=== PATIENT | female | born 1995 | race Caucasian/White ===

== ENCOUNTER → 2017-06-21 19:33 | Emergency (ER) | payer OTHER ==
[~2017-06-21] VITALS: Ht 167.6 cm; Wt 52.0 kg
[~2017-06-21 19:33] MED LIST: BUSP10TA PO; LORA-474 PO; VIST50CA PO; ZOLO100T PO
[2017-06-21 19:34] VITALS: BP 137/81; PULSE 88; RESP 20; TEMP 98.3; O2SAT 98
== END | disposition left against medical advice (07) ==
LOC: NED 19:33
DX: Z04.9 Encounter for examination and observation for unspecified reason (principal)
CPT/HCPCS: 99281

== ENCOUNTER 2017-06-22 00:49 | Emergency (ER) | payer OTHER ==
[~2017-06-22] VITALS: Ht 167.6 cm; Wt 52.0 kg
[~2017-06-22 00:49] MED LIST changes: -BUSP10TA PO; -LORA-474 PO; -ZOLO100T PO
[2017-06-22 00:52] VITALS: BP 115/72; PULSE 124; RESP 22; TEMP 98.5; O2SAT 98
[2017-06-22 01:45] VITALS: BP 111/71; PULSE 82; RESP 18; O2SAT 98
[2017-06-22] MEDS ORDERED: ZOLO100T PO (01:45)
[2017-06-22] MEDS ORDERED: BUSP10TA PO (01:45)
[2017-06-22] MEDS ORDERED: LORazepam 1 MG TAB PO ONE (02:00)
[2017-06-22] MEDS ORDERED: SODIUM CHLORIDE 0.9% FLUSH 10 ML FLUSH IV FLUSH PRN (02:30)
[2017-06-22] MEDS ORDERED: SODIUM CHLOR 0.9% 1000 ML INJ 1,000 ML IV ONE (02:30)
[2017-06-22 02:43] LABS: AUTOMATED NEUTROPHIL # 6.9 TH/MM3 (1.8-7.7); BASOPHIL % 0.4 % (0.0-2.0); EOSINOPHIL % 0.4 % (0.0-4.0); HEMATOCRIT 40.4 % (35.0-46.0); HEMO FLAGS DIFF FINAL; LYMPH % 15.5 % (9.0-44.0); LYMPHOCYTE # 1.4 TH/MM3 (1.0-4.8); MEAN CELL VOLUME 88.6 FL (80.0-100.0); MEAN CORPUSCULAR HEMOGLOBIN 29.9 PG (27.0-34.0); MEAN CORPUSCULAR HGB CONC 33.7 % (32.0-36.0); MONO % 7.4 % (0.0-8.0); NEUT % 76.3 % (16.0-70.0); PLATELET COUNT 251 TH/MM3 (150-450); RED BLOOD COUNT 4.56 MIL/MM3 (4.00-5.30); RED CELL DISTRIBUTION WIDTH 13.1 % (11.6-17.2)
[2017-06-22 03:03] LABS: BICARBONATE 25.8 MEQ/L (21.0-32.0); POTASSIUM 3.8 MEQ/L (3.5-5.1)
[2017-06-22] MEDS ORDERED: LORA-474 PO (03:31)
--- NOTE | 2017-06-22 03:32 | PD ---
HPI Chief Complaint: Anxiety Time Seen by Provider: 01:48 Travel History International Travel<30 days: No Contact w/Intl Traveler<30days: No Traveled to known affect area: No History of Present Illness HPI The patient's 21 years old. She reports severe anxiety for the last several hours. She describes palpitations and dyspnea. A sense of impending doom is reported. She denies suicidal or homicidal ideation. She denies hallucination. She reports future stressors including moving out of home to attend college. PFSH Past Medical History Anxiety: Yes Depression: No Cardiovascular Problems: No Diminished Hearing: No Genitourinary: Yes Musculoskeletal: No Neurologic: No Psychiatric: No Reproductive: Yes (IRREGULAR BLEEDING SINCE ONSET OF MENSES 06/08. ALSO YEAST INFECTION) Respiratory: No Immunizations Current: Yes ?: Not LMP: CURRENT : 0 Past Surgical History Oral Surgery: Yes (WISDOM TEETH) Social History Alcohol Use: No Tobacco Use: No Substance Use: No Allergies-Medications (Allergen,Severity, Reaction): Coded Allergies: Pecan (Verified Allergy, Mild, HIVES, 06/22/17) [place] (Verified Allergy, Mild, HIVES, 06/22/17) Uncoded Allergies: ALMONDS (Allergy, Mild, HIVES, 03/28/08) Reported Meds & Prescriptions Reported Meds & Active Scripts Active Reported Zoloft (Sertraline HCl) 100 Mg Tab 100 Mg PO TID Buspirone (Buspirone HCl) 10 Mg Tab 10 Mg PO TID Review of Systems Except as stated in HPI: all other systems reviewed are Neg Physical Exam Narrative GENERAL: 21 old female well-nourished well-developed pleasant speaking full sentences SKIN: Focused skin assessment warm/dry. HEAD: Atraumatic. Normocephalic. EYES: Pupils equal and round. No scleral icterus. No injection or drainage. ENT: No nasal bleeding or discharge. Mucous membranes pink and moist. NECK: Trachea midline. No JVD. CARDIOVASCULAR: Regular rate and rhythm. No murmur appreciated. RESPIRATORY: No accessory muscle use. Clear to auscultation. Breath sounds equal bilaterally. GASTROINTESTINAL: Abdomen soft, non-tender, nondistended. Hepatic and splenic margins not palpable. MUSCULOSKELETAL: No obvious deformities. No clubbing. No cyanosis. No edema. NEUROLOGICAL: Awake and alert. No obvious cranial nerve deficits. Motor grossly within normal limits. Normal speech. PSYCHIATRIC: No suicidal or homicidal ideation. No hallucination. Data Data Last Documented VS Vital Signs Date Time Temp Pulse Resp B/P Pulse Ox O2 Delivery O2 Flow Rate FiO2 06/22/17 01:45 82 18 111/71 98 Room Air 06/22/17 00:52 98.5 Vital signs reviewed Orders Electrocardiogram (06/22/17 01:57) Chest, Single Ap (06/22/17 01:57) Lorazepam (Ativan) (06/22/17 02:00) Basic Metabolic Panel (Bmp) (06/22/17 02:27) Complete Blood Count With Diff (06/22/17 02:27) Urinalysis - C+S If Indicated (06/22/17 02:27) Iv Access Insert/Monitor (06/22/17 02:27) Ecg Monitoring (06/22/17 02:27) Oximetry (06/22/17 02:27) Sodium Chloride 0.9% Flush (Ns Flush) (06/22/17 02:30) Ed Urine Pregnancytest Poc (06/22/17 02:27) Sodium Chlor 0.9% 1000 Ml Inj (Ns 1000 M (06/22/17 02:30) Labs Laboratory Tests Test 06/22/17 02:34 White Blood Count 9.0 TH/MM3 Red Blood Count 4.56 MIL/MM3 Hemoglobin 13.6 GM/DL Hematocrit 40.4 % Mean Corpuscular Volume 88.6 FL Mean Corpuscular Hemoglobin 29.9 PG Mean Corpuscular Hemoglobin 33.7 % Concent Red Cell Distribution Width 13.1 % Platelet Count 251 TH/MM3 Mean Platelet Volume 7.6 FL Neutrophils (%) (Auto) 76.3 % Lymphocytes (%) (Auto) 15.5 % Monocytes (%) (Auto) 7.4 % Eosinophils (%) (Auto) 0.4 % Basophils (%) (Auto) 0.4 % Neutrophils # (Auto) 6.9 TH/MM3 Lymphocytes # (Auto) 1.4 TH/MM3 Monocytes # (Auto) 0.7 TH/MM3 Eosinophils # (Auto) 0.0 TH/MM3 Basophils # (Auto) 0.0 TH/MM3 CBC Comment DIFF FINAL Differential Comment Sodium Level 139 MEQ/L Potassium Level 3.8 MEQ/L Chloride Level 102 MEQ/L Carbon Dioxide Level 25.8 MEQ/L Anion Gap 11 MEQ/L Blood Urea Nitrogen 12 MG/DL Creatinine 0.71 MG/DL Estimat Glomerular Filtration 105 ML/MIN Rate Random Glucose 100 MG/DL Calcium Level 9.4 MG/DL [facility] Medical Decision Making Medical Screen Exam Complete: Yes Emergency Medical Condition: Yes Medical Record Reviewed: Yes Differential Diagnosis Panic attack, generalized anxiety disorder, pneumothorax, electrolyte imbalance Narrative Course CBC & BMP Diagram 06/22/17 02:34 CXR: NACPD EKG: Sinus, RBBB pattern The patient is resting comfortably and feels better, is alert and in no distress. The patients results and examination findings were discussed. The repeat examination is unremarkable and benign. The history, exam, diagnostic testing, and current condition do not suggest any significant pathology to warrant further testing, continued ED treatment, admission, or surgical evaluation at this point. The vital signs have been stable. The patient does not have uncontrollable pain, intractable vomiting, or other significant symptoms. The patient's condition is stable and appropriate for discharge. The patient will pursue further outpatient evaluation with a primary care physician or other designated or consulting physician as indicated in the discharge instructions. The patient expressed understanding and was agreeable with this plan. Diagnosis Primary Impression: Panic attack Referrals: Teofilo Pink MD 2 days Primary Care Physician 2 days Additional Instructions: You have a choice when it comes to health care, and we are glad that you chose [facility]. Hopefully, we have met your expectations on today's visit. You are welcome to return to [facility] at any time, as we are committed to meeting the health care needs of our community. Med/Other Pt SpecificInfo: Prescription(s) given Scripts Lorazepam (Ativan)1 Mg Tab1 Mg PO DAILY PRN (ANXIETY AND/OR AGITATION) #20 TAB Ref 0 Prov:Jose Eduardo Harrell MD 06/22/17 Disposition: DISCHARGE HOME Condition: Stable Jose Eduardo Harrell MD Jun 22, 2017 03:32
[2017-06-22 03:48] VITALS: BP 103/62; PULSE 67; RESP 18; TEMP 98.1; O2SAT 98
--- NOTE | 2017-06-22 04:50 | RADRPT ---
EXAM DATE/TIME: 06/22/2017 02:08 [place] COMPARISON: No previous studies available for comparison. INDICATIONS : Pt having chest pain and shortness of breath x 2 days. MEDICAL HISTORY : None. SURGICAL HISTORY : None. ENCOUNTER: Initial ACUITY: 2 days PAIN SCORE: 7/10 LOCATION: Bilateral chest FINDINGS: A single view of the chest demonstrates the lungs to be symmetrically aerated without evidence of mas s, infiltrate or effusion. The cardiomediastinal contours are unremarkable. Osseous structures are intact. CONCLUSION: No acute disease. Rodrigo Miranda MD on June 22, 2017 at 4:48 Board Certified Radiologist. This report was verified electronically.
--- NOTE | 2017-06-22 12:21 | EKG ---
Date Performed: 06/22/2017 Time Performed: 02:11:57 PTAGE: 21 years EKG: Sinus rhythm WITH SINUS ARRHYTHMIA POSSIBLE RIGHT VENTRICULAR CONDUCTION DELAY BORDERLINE ECG NO PREVIOUS TRACING DOCTOR: Viktor Parekh Interpretating Date/Time 06/22/2017 12:19:40
== END 2017-06-22 03:50 | disposition home or self-care (01) ==
LOC: NEPE 00:49
DX: F41.0 Panic disorder [episodic paroxysmal anxiety] (principal); I49.8 Other specified cardiac arrhythmias
CPT/HCPCS: 71010; 80048; 84703; 85025; 93005; 99285; J7030